=== PATIENT | female | born 1975 | race Caucasian/White ===

== ENCOUNTER 2019-04-14 11:37 | Emergency (ER) | payer OTHER ==
[~2019-04-14] VITALS: Ht 170.2 cm; Wt 63.0 kg
--- NOTE | 2019-04-14 12:09 | PHYS DOC ---
Past History Past Medical History: No Pertinent History Past Surgical History: Other Smoking: Non-smoker Alcohol Use: None Drug Use: None Adult General Chief Complaint Chief Complaint: HEADACHE HPI HPI Patient is a 43-year-old female presents complaining of a headache more in the front of her head. No fever. Worse with laying down. Became worse today. With some lightheadedness and dizziness as well as photophobia. She notes that she h as nausea, no vomiting or diarrhea. Not worst headache of life. She had a similar headache though when she had salmonella. Denies any diarrhea. No relief with [id number] medicines. Pain is moderate to severe in intensity.[] Review of Systems Review of Systems Constitutional: Denies fever or chills [] Eyes: Denies change in visual acuity, redness, or eye pain [] HENT: Denies nasal congestion or sore throat [] Respiratory: Denies cough or shortness of breath [] Cardiovascular: No chest pain or palpitations[] GI: Denies abdominal pain, nausea, vomiting, bloody stools or diarrhea [] : Denies dysuria or hematuria [] Musculoskeletal: Denies back pain or joint pain [] Integument: Denies rash or skin lesions [] Neurologic: Denies focal weakness or sensory changes, see history of present illness [] Endocrine: Denies polyuria or polydipsia [] All other systems were reviewed and found to be within normal limits, except as documented in this note. Allergies Allergies Allergies Coded Allergies Type Severity Reaction Last Updated Verified No Known Drug Allergies 04/14/19 No Physical Exam Physical Exam Constitutional: Well developed, well nourished, mild discomfort, non-toxic appearance. [] HENT: Normocephalic, atraumatic, bilateral external ears normal, oropharynx moist, no oral exudates, nose normal. [] Eyes: PERRLA, EOMI, conjunctiva normal, no discharge. [] Neck: Normal range of motion, no tenderness, supple, no stridor. No nuchal rigidity[] Cardiovascular:Heart rate regular rhythm, no murmur [] Lungs & Thorax: Bilateral breath sounds clear to auscultation [] Abdomen: Bowel sounds normal, soft, no tenderness, no masses, no pulsatile masses. [] Skin: Warm, dry, no erythema, no rash. [] Back: No tenderness, no CVA tenderness. [] Extremities: No tenderness, no cyanosis, no clubbing, ROM intact, no edema. [] Neurologic: Alert and oriented X 3, normal motor function, normal sensory function, no focal deficits noted. Normal rapid repetitive and alternating movements.[] Psychologic: Affect normal, judgement normal, mood normal. [] Current Patient Data Vital Signs Vital Signs Date Time Temp Pulse Resp B/P (MAP) Pulse Ox O2 Delivery O2 Flow Rate FiO2 04/14/19 11:53 97.9 52 20 100 Room Air EKG EKG [] Radiology/Procedures Radiology/Procedures [] Course & Med Decision Making Course & Med Decision Making Pertinent Labs and Imaging studies reviewed. (See chart for details) ED course: Patient arrived, was placed in bed, in tolerated exam well. She was given IV fluids, pain medicines, and antiemetics. Her pain was significantly improved along with her photophobia being improved. She was released in improved condition with all questions answered. Medical decision making: There is no evidence of meningitis, encephalitis, stroke syndrome, subdural or epidural bleed. Given patient's history of salmonella, no evidence of salmonella at this time. Patient is unable to provide a stool sample at this time. Do not think that it is incumbent upon her to do so prior to discharge. No evidence of an intractable pain[] Dragon Disclaimer Dragon Disclaimer This electronic medical record was generated, in whole or in part, using a voice recognition dictation system. Departure Departure: Impression: Primary Impression: Headache Disposition: 01 HOME, SELF-CARE Condition: IMPROVED Referrals: PCP,NO (PCP) Patient Instructions: General Headache Without Cause Additional Instructions: Drink plenty of fluids. At the onset of your neck headache like this, try 1/4 teaspoon of rosa spice dissolved in apple juice or water. Follow-up with your regular doctor in 2 days. If you do not have regular doctor list of local clinics will be provided for you. Return to the ER if worsening pain or any other concerns. Scripts Metoclopramide Hcl (REGLAN) 10 Mg Tablet 10 MG PO QID for nausea and vomiting, #30 TAB Prov: LAUREN DORMAN DO 04/14/19 D-Methorphan Hb/Prometh Hcl (PROMETHAZINE-DM SYRUP) 118 Ml Syrup 5 ML PO PRN Q4HRS for CONGESTION, #120 ML Prov: EIDENBERG,LAUREN DO 04/14/19 Meloxicam (MELOXICAM) 7.5 Mg Tablet 7.5 MG PO DAILY for PAIN, #20 TAB Prov: LAUREN DORMAN DO 04/14/19 Problem Qualifiers Primary Impression: Headache Headache type: unspecified Headache chronicity pattern: episodic headache Intractability: not intractable Qualified Codes: R51 - Headache LAUREN DORMAN DO Apr 14, 2019 12:09
[2019-04-14] MEDS ORDERED: IV NORMAL SALINE 1,000ML 1,000 ML IV ONE (12:15)
[2019-04-14] MEDS ORDERED: KETOROLAC 15 MG/ML VIAL. IV ONE (12:15)
[2019-04-14] MEDS ORDERED: diphenhydrAMINE 50 MG/ML VIAL IVP ONE (12:15)
[2019-04-14] MEDS ORDERED: METOCLOPRAMIDE HCL 10 MG/2 ML VIAL. IV ONE (12:15)
[2019-04-14] MEDS ORDERED: D-ME118S2 PO (13:25)
[2019-04-14] MEDS ORDERED: MELO7.5T29 PO (13:25)
[2019-04-14] MEDS ORDERED: METO10TA81 PO (13:25)
[2019-04-14 13:31] VITALS: BP 127/78
== END 2019-04-14 13:34 | disposition home or self-care (01) ==
LOC: ER 11:37
DX: R51 Headache (principal); R42 Dizziness and giddiness
CPT/HCPCS: 81025; 96361; 96374; 96375; 99284; J1200; J1885; J2765; J7030